=== PATIENT | male | born 1990 | race Two or more races ===

== ENCOUNTER 2017-03-12 03:39 | Emergency (ER) | payer OTHER ==
[~2017-03-12] VITALS: Ht 172.7 cm; Wt 74.8 kg
[2017-03-12 03:50] VITALS: BP 139/79
== END 2017-03-12 04:12 ==
LOC: ER 03:41
DX: Z02.89 Encounter for other administrative examinations (principal); R73.09 Other abnormal glucose
CPT/HCPCS: 82962; 99283; A4606; Z7610